=== PATIENT | male | born 1970 | race Caucasian/White ===

== ENCOUNTER 2019-04-09 11:42 | Day surgery (SDC) | payer MEDICAID ==
[2019-04-01 14:06] LABS: BASOPHILS % (AUTO) 0.6 % (0-1); EOSINOPHILS % (AUTO) 0.3 % (0-6); LYMPHOCYTES % (AUTO) 18.7 % (21-51); MEAN CORPUSCULAR HEMOGLOBIN 31.8 PG (27.0-31.0); MEAN CORPUSCULAR HGB CONC 34.7 g/dL (33.0-36.5); MEAN CORPUSCULAR VOLUME 91.8 FL (78-98); MEAN PLATELET VOLUME 7.3 FL (7.4-10.4); MONOCYTES # (AUTO) 0.4 X10'3 (0-0.9); MONOCYTES % (AUTO) 7.3 % (2-12); NEUTROPHILS % (AUTO) 73.1 % (42-75); PRE OP HEMATOCRIT 43.9 % (42.0-52.0); PRE OP HEMOGLOBIN 15.2 g/dL (14.0-17.9); PRE OP PLATELET COUNT 176 X10'3 (140-440); RED BLOOD COUNT 4.78 X10'6 (4.70-6.10); RED CELL DISTRIBUTION WIDTH 13.3 % (11.5-14.5)
[2019-04-01 14:18] LABS: ALBUMIN 3.8 G/DL (3.4-5.0); ALBUMIN/GLOBULIN RATIO 1.1 (1.1-1.5); ALKALINE PHOSPHATASE 44 IU/L (46-116); BLOOD UREA NITROGEN 15 MG/DL (7-18); BUN/CREATININE RATIO 14.7 (5.4-32.0); CALCIUM 8.9 MG/DL (8.5-10.1); CHLORIDE 103 MMOL/L (99-107); CREATININE 1.02 MG/DL (0.60-1.10); PRE OP ALT 14 U/L (30-65); PRE OP ANION GAP 5 (8-16); PRE OP AST 9 U/L (10-37); PRE OP BILIRUB, TOTAL 0.8 MG/DL (0.0-1.0); PRE OP GLUCOSE 106 MG/DL (70-104); PRE OP POTASSIUM 4.1 MMOL/L (3.4-5.1); PRE OP SODIUM 140 MMOL/L (135-145); TOTAL CARBON DIOXIDE 32.1 MMOL/L (24-32); TOTAL PROTEIN 7.3 G/DL (6.4-8.2); eGFR 78 ML/MIN
[~2019-04-09] VITALS: Ht 182.9 cm; Wt 81.1 kg
[2019-04-09] VITALS (7 sets, daily range): BP systolic 96–108; BP diastolic 58–72
[~2019-04-09 11:42] MED LIST: LEVO75TA7 PO; VANCOMYCIN INJ 1000 MG in NORMAL SALINE 250ml IV.SOLN IV ONE; cefazolin/dext.iso 2gm/50ml 50 ML IV ONE; famotidine 20mg tablet PO ONE; ringers solution, lacted 1,000 ML IV SCH
[2019-04-09] MEDS ORDERED: ringers solution, lacted 1,000 ML IV SCH (12:08)
[2019-04-09] MEDS ORDERED: ondansetron/PF 4mg/2ml inj IV PRN (12:10)
[2019-04-09] MEDS ORDERED: labetalol 20mg/4ml (5mg/ml) syringe IV PRN (12:10)
[2019-04-09] MEDS ORDERED: fentaNYL/PF 50MCG/1 ML 2ML syringe IV PRN ×2 (12:10)
[2019-04-09] MEDS ORDERED: hydrALAZINE 20mg/ml inj. IV PRN (12:10)
[2019-04-09] MEDS ORDERED: morphine 4 MG/ML inj SYRINge IV PRN ×2 (12:10)
[2019-04-09] MEDS ORDERED: triamcinolone acetonide 40mg/ml inj ONE (13:54)
[2019-04-09] MEDS ORDERED: BUPIVAcaine/PF 2.5 mg/ml (0.25%) 30ml vial ONE (13:54)
[2019-04-09] MEDS ORDERED: midazolam 2 mg/2 ml injection ONE (13:58)
[2019-04-09] MEDS ORDERED: fentaNYL/PF 50MCG/1 ML 2ML syringe ONE (13:58)
[2019-04-09] MEDS ORDERED: ondansetron/PF 4mg/2ml inj ONE (13:59)
[2019-04-09] MEDS ORDERED: propofol inj 20 ML IV ONE (13:59)
[2019-04-09] MEDS ORDERED: LIDOcaine 2% (20mg/ml) 5ml vial ONE (13:59)
[2019-04-09] MEDS ORDERED: sevoflurane 250ml liquid IH ONE (14:04)
[2019-04-09] MEDS ORDERED: dexamethasone sod phosphate 10mg/ml inj ONE (14:04)
[2019-04-09] MEDS ORDERED: naloxone 0.4 mg/ml inj ONE (15:01)
--- NOTE | 2019-04-09 15:06 | NUR ---
Received from OR via , accompanied by Anesthesiologist DR OLIVAREZ and report given by Anesthesiolgist. AWAKENS TO VOICE, VITALS STABLE. DRESSING DI. JOYCE PAIN. RT FOOT WARM AND PINK.
--- NOTE | 2019-04-09 16:06 | NUR ---
AWAKE AND ORIENTED. VITALS STABLE. DRESSING DI. JOYCE PAIN. HOME IN A CAB AT THIS TIME.
== END 2019-04-09 16:06 | disposition home or self-care (01) ==
LOC: PAS 11:42
PROVIDERS: ATTEND Orthopaedic Surgery
DX: S83.271A Complex tear of lateral meniscus, current injury, right knee, initial encounter (principal); S83.231A Complex tear of medial meniscus, current injury, right knee, initial encounter; I10 Essential (primary) hypertension; M94.261 Chondromalacia, right knee; E03.9 Hypothyroidism, unspecified; M17.0 Bilateral primary osteoarthritis of knee; Z79.899 Other long term (current) drug therapy; Z72.89 Other problems related to lifestyle; Z98.890 Other specified postprocedural states; X58.XXXA Exposure to other specified factors, initial encounter; Y93.89 Activity, other specified; Y92.89 Other specified places as the place of occurrence of the external cause; Y99.8 Other external cause status
CPT/HCPCS: 29873; 29879; 29880; 36415; 80053; 82948; 85025; 93005; J1100; J2001; J2250; J2310; J2405; J2704; J3010; J3301; J3370; J3490; A4215; A4618; A6250; A6449; A7000; J7120